=== PATIENT | male | born 1950 | race Two or more races ===

== ENCOUNTER → 2017-10-21 | Day surgery (SDC) | payer OTHER ==
[~2017-10-21] MED LIST: LIDOCAINE 2% PF Vial for OR 5 ML VIAL.; PROPOFOL 20 ML IV
[2017-10-21] MEDS: IV RINGERS,LACTATED 1000ML 1,000 ML IV (09:48)
== END | disposition home or self-care (01) ==
LOC: SURG 09:08
DX: K21.0 Gastro-esophageal reflux disease with esophagitis (principal); I85.00 Esophageal varices without bleeding; K29.70 Gastritis, unspecified, without bleeding; K76.6 Portal hypertension; K31.89 Other diseases of stomach and duodenum; F41.9 Anxiety disorder, unspecified; Z98.49 Cataract extraction status, unspecified eye; Z87.891 Personal history of nicotine dependence; Z79.899 Other long term (current) drug therapy
CPT/HCPCS: 43239; J2704

== ENCOUNTER → 2018-05-12 | Day surgery (SDC) | payer MEDICARE ==
[~2018-05-12] MED LIST changes: +FURO40TA4 PO; +IV RINGERS,LACTATED 1000ML 1,000 ML IV SCH; +LACT20SO PO; +LIDOCAINE 1% PF 2 ML VIAL. ID PRN; +LIDOCAINE 1% PF 2 ML VIAL. ONE; -LIDOCAINE 2% PF Vial for OR 5 ML VIAL.; +MIDAZOLAM HCL/PF 2 MG/2 ML VIAL. IV PRN; +PANT20TA2 PO; +POTA20TA82 PO; -PROPOFOL 20 ML IV; +PROPOFOL 20 ML IV ONE; +SPIR50TA4 PO; +fentaNYL PF VIAL 100 MCG/2 ML VIAL IV PRN
[2018-05-12 09:57] LABS: CALCIUM 8.8 mg/dL (8.5-10.1); POTASSIUM 3.4 mmol/L (3.5-5.1)
[2018-05-12 10:35] VITALS: BP 108/66
--- NOTE | 2018-05-13 18:07 | PATHOLOGY ---
[facility] Accession Number: [id number] . 01 Material submitted: . FUNDUS BX . 01 Clinical history: . Varices . 02 Diagnosis: Gastric biopsy, gastric fundus: - Mild superficial edema, congestion, and slight chronic inflammation. See comment. (JPM:delivery representative; 05/13/2018) [facility]BR/05/13/2018 . 02 Comment: Sections of the gastric biopsy reveal a segment of gastric body mucosa showing mild superficial edema, congestion, and slight chronic inflammation. Sclerotic ectatic capillaries are not identified within the lamina propria. A properly controlled immunoperoxidase stain for Helicobacter is negative for Helicobacter organisms. . Special stain performed: Immunoperoxidase stain for Helicobacter. . (JPM:delivery representative; 05/13/2018) . 02 Electronically signed: . Dalton De La Rosa MD, Pathologist NPI- [id number] . 01 Gross description: . Received in formalin labeled "Anmol Sanchez, fundus BX," is a single segment of zuleta soft tissue measuring 0.3 cm in maximum dimension. The specimen is entirely submitted in cassette A1. (TSD; 05/12/2018) TOB/TOB . 02 Pathologist provided ICD-10: K29.30, K25.9 . 02 CPT . 026962, [id number] Specimen Comment: A courtesy copy of this report has been sent to Specimen Comment: [phone]. Specimen Comment: Report sent to Performed at: 01 [facility] [address] [id number] MD Isak Crespo MD Phone: [phone] Performed at: 02 [facility] [address] [place], [place] [id number] MD Dalton De La Rosa MD Phone: [phone]
== END | disposition home or self-care (01) ==
LOC: SURG 09:19
PROVIDERS: ATTEND Internal Medicine Gastroenterology
DX: K29.50 Unspecified chronic gastritis without bleeding (principal); I85.00 Esophageal varices without bleeding; I10 Essential (primary) hypertension; K21.9 Gastro-esophageal reflux disease without esophagitis; M19.90 Unspecified osteoarthritis, unspecified site; F41.9 Anxiety disorder, unspecified; F32.9 Major depressive disorder, single episode, unspecified; Z79.899 Other long term (current) drug therapy; Z98.890 Other specified postprocedural states; Z98.42 Cataract extraction status, left eye; Z98.41 Cataract extraction status, right eye
CPT/HCPCS: 36415; 43239; 80048; 88305; 88342; J2704

== ENCOUNTER → 2018-06-16 | Day surgery (SDC) | payer MEDICARE, OTHER ==
[~2018-06-16] MED LIST changes: +HYDROmorphone 2 MG/ML VIAL IV PRN; -LIDOCAINE 1% PF 2 ML VIAL. ONE; -MIDAZOLAM HCL/PF 2 MG/2 ML VIAL. IV PRN; +MORPHINE SULFATE 2 MG/ML VIAL. IV PRN; +ONDANSETRON PF 4 MG/2 ML VIAL. IV PRN; +PROCHLORPERAZINE 10 MG/2 ML VIAL. IV PRN; -PROPOFOL 20 ML IV ONE; +PROPOFOL 40 ML IV ONE
[2018-06-16 11:05] VITALS: BP 118/81
--- NOTE | 2018-06-16 11:06 | PREOP HP ---
DATE OF SERVICE: 06/16/2018 REASON FOR PROCEDURE: Colorectal cancer screening and heme positive stool. HISTORY OF PRESENT ILLNESS: This is a 67-year-old gentleman with a history of cirrhosis who presents today for colonoscopy. He has a family history of colon cancer in a brother who was diagnosed in his 40s. PAST MEDICAL HISTORY: 1. Cirrhosis. 2. Esophageal varices. 3. Anxiety. 4. Hyponatremia. FAMILY MEDICAL HISTORY: Colorectal cancer in his brother. PSYCHOSOCIAL HISTORY: He has a past heavy alcohol use and tobacco use. MEDICATIONS: 1. Spironolactone. 2. Furosemide. 3. Lactulose. 4. Protonix. 5. Potassium. REVIEW OF SYSTEMS: A 13-point review of systems was done. It is positive per HPI and otherwise negative. PHYSICAL EXAMINATION: GENERAL: He is a well-developed, thin male, in no apparent distress. HEENT: His oropharynx is clear. CARDIOVASCULAR: S1, S2. LUNGS: Clear. ABDOMEN: Normoactive bowel sounds, soft, nontender, nondistended. EXTREMITIES: No edema. NEUROLOGIC: Awake, alert and oriented x 3. ASSESSMENT: 1. Colorectal cancer screening. 2. Heme-positive stools. 3. Family history of colon cancer. PLAN: Risks and benefits of the procedure including bleeding, perforation, non-diagnosis and sedation were explained and he has agreed to proceed. Thank you for allowing me to participate in the care of this patient. KARMEN SHIN MD DR: BETY/tom JOB#: [id number] / [id number]
--- NOTE | 2018-06-20 10:08 | PATHOLOGY ---
[facility] Accession Number: [id number] . 01 Material submitted: . PART A: CECAL POLYP BIOPSY PART B: DESCENDING COLON POLYP PART C: SIGMOID COLON POLYP . 01 Clinical history: . Polyps . 02 Diagnosis: A. Colon, cecum, biopsy: - Adenomatous polyp, two fragments. . B. Colon, descending, biopsy: - Adenomatous polyp, two fragments. . C. Colon, sigmoid, biopsy: - Hyperplastic polyp. . (SKM:mml; 06/17/18) [facility]/06/17/2018 . 02 Electronically signed: . Kelby Kennedy MD, Pathologist NPI- [id number] . 01 Gross description: . A. Received in formalin labeled "Anmol Sanchez, cecal polyp BX," are 2 segments of zuleta soft tissue measuring 0.7 x 0.2 x 0.2 cm in aggregate dimensions and ranging from 0.3 to 0.4 cm in maximum dimension. The specimen is submitted entirely in cassette A1. . B. Received in formalin labeled "Anmol Sanchez, descending colon polyp," are 2 segments of zuleta soft tissue measuring 0.8 x 0.3 x 0.2 cm in aggregate dimensions and ranging from 0.3 to 0.5 cm in maximum dimension. The specimen is submitted entirely in cassette B1. . C. Received in formalin labeled "Anmol Sanchez, sigmoid polyp BX," is a single segment of zuleta soft tissue measuring 0.3 cm in maximum dimension. The specimen is entirely submitted in cassette C1. (TSD; 06/16/2018) TOB/TOB . 02 Pathologist provided ICD-10: D12.0, D12.4, K63.5 . 02 CPT . 093605, 428124, 037397 Specimen Comment: A courtesy copy of this report has been sent to Specimen Comment: [phone]. Specimen Comment: Report sent to Performed at: [address] [id number] MD Isak Crespo MD Phone: [phone] Performed at: 02 [facility] [address] [place], [place] [id number] MD Dalton De La Rosa MD Phone: [phone]
== END | disposition home or self-care (01) ==
LOC: SURG 08:42
PROVIDERS: ATTEND Internal Medicine Gastroenterology
DX: D12.0 Benign neoplasm of cecum (principal); D12.4 Benign neoplasm of descending colon; K63.5 Polyp of colon; K64.0 First degree hemorrhoids; K74.60 Unspecified cirrhosis of liver; I85.00 Esophageal varices without bleeding; F41.9 Anxiety disorder, unspecified; E87.1 Hypo-osmolality and hyponatremia; Z80.0 Family history of malignant neoplasm of digestive organs; Z79.899 Other long term (current) drug therapy
CPT/HCPCS: 45380; 88305; J2704; 45378; 45385

== ENCOUNTER → 2018-07-14 | Day surgery (SDC) | payer OTHER ==
[~2018-07-14] MED LIST changes: -MORPHINE SULFATE 2 MG/ML VIAL. IV PRN; +MORPHINE SULFATE 4 MG/ML VIAL. IV PRN; +PROPOFOL 20 ML IV ONE; -PROPOFOL 40 ML IV ONE
[2018-07-14 13:27] VITALS: BP 131/65
== END | disposition home or self-care (01) ==
LOC: SURG 11:33
PROVIDERS: ATTEND Internal Medicine Gastroenterology
DX: I85.00 Esophageal varices without bleeding (principal); K29.20 Alcoholic gastritis without bleeding; F41.9 Anxiety disorder, unspecified; K74.60 Unspecified cirrhosis of liver; E87.1 Hypo-osmolality and hyponatremia; Z79.899 Other long term (current) drug therapy; Z72.89 Other problems related to lifestyle
CPT/HCPCS: 43235; J2704